=== PATIENT | female | born 1945 | race Caucasian/White ===

== ENCOUNTER 2018-06-01 16:15 | Observation (INO) ==
--- NOTE | 2018-06-01 16:56 | ED ---
HPI General Chief complaint: Neuro Symptoms/Deficit Stated complaint: Confusion/Blurred Vision Time Seen by Provider: 06/01/18 16:33 Source: patient Mode of arrival: ambulatory Limitations: no limitations History of Present Illness HPI narrative: 72yo F presents to the ED with c/o slurred speech and difficulty speaking the right words about an hour and a half hours ago. Said her symptoms have pretty much resolved. Also has been having nausea, diarrhea and diffuse abdominal discomfort for 2 days. Denies any fever, chest pain, sob, focal weakness or numbness. Denies any previous stroke. PSH include cholecystectomy and appendectomy. Related Data Home Medications Medication Instructions Recorded Confirmed atorvastatin 20 mg PO DAILY 06/01/18 06/01/18 calcium carbonate [Calcium 500] 500 mg PO DAILY 06/01/18 06/01/18 cholecalciferol (vitamin D3) 2,000 unit PO DAILY 06/01/18 06/01/18 [Vitamin D3] docosahexanoic acid-epa [Fish Oil] 1 cap PO BID 06/01/18 06/01/18 multivitamin 1 tab PO DAILY 06/01/18 06/01/18 oxybutynin chloride 2.5 mg PO BID 06/01/18 06/01/18 venlafaxine 75 mg PO DAILY 06/01/18 06/01/18 Allergies Allergy/AdvReac Type Severity Reaction Status Date / Time codeine Allergy Nausea/Vomi Verified 06/01/18 16:39 ting Review of Systems ROS Unobtainable All other systems reviewed negative except as stated in HPI [facility] Medical History Medical History Depression (Acute) High cholesterol (Acute) Social History Social History Substance History: No History of Abuse Second Hand Smoke Exposure: No Smoking Status: Former smoker How Often Do You Have a Drink Containing Alcohol: Never Recent Travel in [facility] within the Last 8 Weeks: No Recent Out of Country Travel within the Last 8 Weeks: No Immunization History Tetanus Immunization: >5 Years Hx Influenza Vaccine This Season: No Exam Narrative Exam Narrative: GENERAL: 72yo F in mild distress. SKIN: Focused skin assessment warm/dry. HEAD: Atraumatic. Normocephalic. EYES: Pupils equal and round. No scleral icterus. No injection or drainage. ENT: No nasal bleeding or discharge. Mucous membranes pink and moist. NECK: Trachea midline. No JVD. CARDIOVASCULAR: Regular rate and rhythm. No murmur appreciated. RESPIRATORY: No accessory muscle use. Clear to auscultation. Breath sounds equal bilaterally. GASTROINTESTINAL: Abdomen soft, diffuse tenderness. No rebound tenderness or guarding. MUSCULOSKELETAL: No obvious deformities. No clubbing. No cyanosis. No edema. NEUROLOGICAL: Awake and alert. No obvious cranial nerve deficits. Motor grossly within normal limits in all extremities. Sensation intact. Normal speech. NIH stroke scale 0. PSYCHIATRIC: Appropriate mood and affect; insight and judgment normal. Course Initial Documented Vital Signs Temperature 98.9 F 06/01/18 16:19 Pulse Rate 77 06/01/18 16:19 Respiratory Rate 18 06/01/18 16:19 Blood Pressure 145/101 H 06/01/18 16:19 Pulse Oximetry 98 06/01/18 16:19 Last Documented Vital Signs Temperature 98.9 F 06/01/18 16:19 Pulse Rate 82 06/01/18 18:31 Respiratory Rate 18 06/01/18 18:31 Blood Pressure 140/73 06/01/18 18:31 Pulse Oximetry 100 06/01/18 18:31 Medical Decision Making MDM Narrative Medical decision making narrative: 72yo F with sudden onset dysarthria and aphasia that started 1.5 hours ago but resolved by the time she arrived at the ED. NIH stroke scale 0 in the ED. Pt also with GI symptoms that started 2 days ago. Pt said if she doesnt move, she does not really have pain in her abdomen so does not want any pain medication now. Labs reviewed, no leukocytosis. H/H normal. Mild hypokalemia at 3.3, replaced orally. Pt given aspirin. CT brain showed no acute findings. Pt given aspirin. CT a/p showed mild colitis. Pt is well appearing with no fever or leukocytosis. Likely gastroenteritis. Discussed with Dr. Hurt and accepted for observation for TIA. Differential Diagnosis Differential Diagnosis: TIA vs. colitis vs. dehydration vs. electrolyte abnormality Lab Data Result diagrams: 06/01/18 16:30 06/01/18 16:30 Lab Results 06/01/18 06/01/18 06/01/18 Range/Units 16:30 16:30 16:30 CBC w Diff Auto diff final WBC 6.0 (4.0-11.0) th/mm3 RBC 4.32 (4.00-5.30) mil/mm3 Hgb 13.8 (11.6-15.3) gm/dL Hct 40.8 (35.0-46.0) % MCV 94.5 (80.0-100.0) fL MCH 31.8 (27.0-34.0) pg MCHC 33.7 (32.0-36.0) % RDW 13.6 (11.6-17.2) % Plt Count 212 (150-450) th/mm3 MPV 7.2 (7.0-11.0) fL Neut % (Auto) 54.6 (16.0-70.0) % Lymph % (Auto) 34.9 (9.0-44.0) % [place] % (Auto) 9.5 H (0.0-8.0) % Eos % (Auto) 0.4 (0.0-4.0) % Baso % (Auto) 0.6 (0.0-2.0) % Neut # (Auto) 3.3 (1.8-7.7) th/mm3 Lymph # (Auto) 2.1 (1.0-4.8) th/mm3 [place] # (Auto) 0.6 (0.0-0.9) th/mm3 Eos # (Auto) 0.0 (0.0-0.4) th/mm3 Baso # (Auto) 0.0 (0.0-0.2) th/mm3 WBC Differential . Differential Comment . PT 10.8 (9.8-11.6) sec INR 1.1 Ratio APTT 26.0 (24.3-30.1) sec Sodium 138 (136-145) meq/L Potassium 3.3 L (3.5-5.1) meq/L Chloride 105 (98-107) meq/L Carbon Dioxide 22.5 (21.0-32.0) meq/L Anion Gap 11 (5-15) meq/L BUN 11 (7-18) mg/dL Creatinine 1.20 H (0.50-1.00) mg/dL Estimated GFR 44 L (>89) mL/min Random Glucose 90 (74-106) mg/dL Calcium 10.1 (8.5-10.1) mg/dL Total Bilirubin 0.8 (0.2-1.0) mg/dL AST 28 (15-37) U/L ALT 29 (10-53) U/L Alkaline Phosphatase 96 (45-117) U/L Total Protein 8.3 H (6.4-8.2) g/dL Albumin 3.8 (3.4-5.0) g/dL Lipase 317 (73-393) U/L Imaging Data Radiologist's impression: Abdomen/Pelvis CT 06/01/18 16:45 CONCLUSION: 1. Diffuse mild mural thickening of the colon most characteristic of a mild colitis. 2. Fatty liver. Previous cholecystectomy. Head CT 06/01/18 16:45 CONCLUSION: 1. No acute findings. . ECG Data EKG Prior to Arrival: No Attestation: I personally reviewed and interpreted this ECG as follows: Interpretation: NSR 78bpm. LAD. No ST elevation or depression. Discharge Plan Discharge Disposition Patient Disposition: 30 Still Patient Discharge Details Diagnosis: Transient ischemic attack Physicians Team ED Provider: Tara Bennett Primary Care Provider: Jessica Hoang Attending Provider: Alina Hurt Other Providers: Annette Mcdowell ; Bita Hudson Status ED Status: Admitted Observation Patient
[2018-06-01 17:00] LABS: Baso % (Auto) 0.6 % (0.0-2.0); Eos % (Auto) 0.4 % (0.0-4.0); Hematocrit 40.8 % (35.0-46.0); Hemoglobin 13.8 gm/dL (11.6-15.3); Lymph # (Auto) 2.1 th/mm3 (1.0-4.8); Lymph % (Auto) 34.9 % (9.0-44.0); Mean Corpuscular HGB Conc 33.7 % (32.0-36.0); Mean Corpuscular Hemoglobin 31.8 pg (27.0-34.0); Mean Corpuscular Volume 94.5 fL (80.0-100.0); Mean Platelet Volume 7.2 fL (7.0-11.0); Mono # (Auto) 0.6 th/mm3 (0.0-0.9); Mono % (Auto) 9.5 % (0.0-8.0); Neut # (Auto) 3.3 th/mm3 (1.8-7.7); Neut % (Auto) 54.6 % (16.0-70.0); Platelet Count 212 th/mm3 (150-450); Red Blood Count 4.32 mil/mm3 (4.00-5.30); Red Cell Distribution Width 13.6 % (11.6-17.2)
[2018-06-01 17:10] LABS: Chloride 105 meq/L (98-107); Potassium 3.3 meq/L (3.5-5.1); Sodium 138 meq/L (136-145)
[2018-06-01 17:13] LABS: Calcium 10.1 mg/dL (8.5-10.1)
[2018-06-01 17:14] LABS: Albumin 3.8 g/dL (3.4-5.0); Anion Gap 11 meq/L (5-15); Blood Urea Nitrogen 11 mg/dL (7-18); Carbon Dioxide 22.5 meq/L (21.0-32.0); Glucose,Random 90 mg/dL (74-106); Lipase 317 U/L (73-393)
[2018-06-01 17:16] LABS: INR 1.1 Ratio; Prothrombin Time 10.8 sec (9.8-11.6)
[2018-06-01 17:17] LABS: Alanine Aminotransferase 29 U/L (10-53); Aspartate Aminotransferase 28 U/L (15-37); Glomerular Filtration Rate 44 mL/min (>89)
[2018-06-01 17:19] LABS: Total Protein 8.3 g/dL (6.4-8.2)
[2018-06-01 17:20] LABS: Alkaline Phosphatase 96 U/L (45-117)
--- NOTE | 2018-06-01 17:59 | CT ---
EXAM DATE: 06/01/2018 5:55 PM EDT AGE/SEX: 72 years / Female INDICATIONS: Speaking difficulty. CLINICAL DATA: This is the patient's initial encounter. Patient reports that signs and symptoms have been present for 1 day and indicates a pain score of 0/10. MEDICAL/SURGICAL HISTORY: Hypercholesterolemia. Appendectomy. Cholecystectomy. RADIATION DOSE: 55.03 CTDI (mGy) COMPARISON: No prior exams available for comparison. TECHNIQUE: CT of the head without contrast. Using automated exposure control and adjustment of the mA and/or kV according to patient size, radiation dose was kept as low as reasonably achievable to ob tain optimal diagnostic quality images. DICOM format image data is available electronically for revi ew and comparison. FINDINGS: Remote left cerebellar lacunar infarct. No signs of acute infarct, hemorrhage or mass. No fractures a re seen. CONCLUSION: 1. No acute findings. . Electronically signed by: Sulaiman Soliz MD 06/01/2018 5:57 PM EDT
--- NOTE | 2018-06-01 18:12 | CT ---
EXAM DATE: 06/01/2018 6:00 PM EDT AGE/SEX: 72 years / Female INDICATIONS: Non-specific abdominal pain and nausea. CLINICAL DATA: This is the patient's initial encounter. Patient reports that signs and symptoms have been present for 2 days and indicates a pain score of 5/10. MEDICAL/SURGICAL HISTORY: Hypercholesterolemia. Appendectomy. Cholecystectomy. ORAL CONTRAST: No oral contrast ingested. RADIATION DOSE: 14.06 CTDI (mGy) COMPARISON: No prior exams available for comparison. TECHNIQUE: Multiple contiguous axial images were obtained through the abdomen and pelvis following b olus infusion of 95 ml Omnipaque 350 (iohexol) nonionic water-soluble contrast as a single exam dos e. No oral contrast ingested. Using automated exposure control and adjustment of the mA and/or kV ac cording to patient size, radiation dose was kept as low as reasonably achievable to obtain optimal di agnostic quality images. DICOM format image data is available electronically for review and comparis on. FINDINGS: Lung bases are clear. Diffuse fatty liver. Spleen, adrenals, kidneys and pancreas demonstrate no acut e previous cholecystectomy without biliary ductal dictation. No free fluid. No bowel obstruction. No adenopathy. There is mild mural thickening of the colon most characteristic of a mild colitis. CONCLUSION: 1. Diffuse mild mural thickening of the colon most characteristic of a mild colitis. 2. Fatty liver. Previous cholecystectomy. Electronically signed by: Christopher Verduzco MD 06/01/2018 6:11 PM EDT
[2018-06-01] MEDS ORDERED: Aspirin 325 MG Tablet PO ONE (18:22)
[2018-06-01] MEDS ORDERED: Dextrose 50% in Water 50 ML Vial IV.PUSH PRN (18:29)
[2018-06-01] MEDS: Insulin NovoLOG Aspart Correctional Sugar Inj SQ SCH (23:24)
[2018-06-02] MEDS: Insulin NovoLOG Aspart Correctional Sugar Inj SQ SCH ×3 (08:37→16:44)
[2018-06-02] MEDS: Calcium Carbonate 500 MG Tablet PO SCH (08:39)
[2018-06-02] MEDS: Aspirin 325 MG Tablet PO SCH (08:39)
[2018-06-02] MEDS: Venlafaxine XR 75 MG Capsule PO SCH (08:40)
--- NOTE | 2018-06-02 10:21 | ECG ---
Date Performed: 06/01/2018 Time Performed: 16:29:05 PTAGE: 72 years EKG: Sinus rhythm BORDERLINE LEFT AXIS DEVIATION NONSPECIFIC ST & T-WAVE ABNORMALITY BORDERLINE ECG NO PREVIOUS TRACING DOCTOR: Amie Tran Interpretating Date/Time 06/02/2018 10:19:23
[2018-06-02 10:38] LABS: Chol/HDL Ratio 3.33 Ratio; HDL Cholesterol 51.6 mg/dL (40.0-60.0)
--- NOTE | 2018-06-02 10:41 | MB ---
cc: Annette Mcdowell MD DATE: 06/02/2018 IDENTIFYING DATA: A 72-year-old female. REASON FOR CONSULTATION: Possible stroke. HISTORY OF PRESENT ILLNESS: This is a pleasant 72-year-old woman who was in [place] at a therapist for her son who has autism when she was trying to describe a bottle of water with electrolytes and the words just did not come out properly lasting for a certain length of time, really unsure to the point where her symptoms resolved. She has had some type of viral syndrome prior to that 3 days prior with some nausea, diarrhea, and abdominal discomfort. No fever or chills. Since they live close to [facility], she decided to come to the ED to get evaluated. She no longer has any symptoms. Denies any trouble speaking, understanding, numbness, tingling, dizziness, headache, weakness, and unsteady gait. PAST MEDICAL HISTORY: Depression and hyperlipidemia. SOCIAL HISTORY: Nonsmoker. Does not drink. Has a 39-year-old son with autism. FAMILY HISTORY: Heart disease on mother and father's side. States her father in his 30s of a heart attack. MEDICATIONS: Refer to MAR, but she does not usually take aspirin due to some GI issues. PHYSICAL EXAMINATION: VITAL SIGNS: Temperature 97.1, pulse 82, respiratory rate 20, blood pressure 117/63, saturating at 99% on room air. NECK: Supple. No appreciable bruits. HEART: Regular. LUNGS: Clear. NEUROLOGIC: She is awake, alert and oriented. Pupils reactive. Visual [place] are full. Face symmetrical. Tongue midline. She does not have any aphasia or dysarthria. Motor [place] no drift or leg lag. Cerebellar testing is normal. DTRs are 1+. Toes are downgoing. Gait is steady. LABORATORY DATA: Reviewed. CBC is unremarkable. Coag panel normal. Chemistries: Potassium 3.3, creatinine 1.2, GFR 44, glucose 128. Hemoglobin A1c is pending. Lipid panel appears pending. Lipase is normal. IMAGING: CT head shows a remote left cerebellar lacune, nothing acute, however. IMPRESSION: Transient ischemic attack-like event in a 72-year-old woman with a history of hyperlipidemia. RECOMMENDATIONS: Recommend, at this point in time, obtaining a complete neurological evaluation with an MRI/MRA, carotid ultrasound, 2-D echo, placed her on some aspirin and a statin. PT has already seen her. She is at baseline. Depending on findings, further recommendations will be made accordingly. A lipid panel and hemoglobin A1c is also pending. Continue current care, further recommendations to be made as needed. Annette Mcdowell MD DF/DL , 10:23 AM , 10:32 AM
[2018-06-02 10:55] LABS: Potassium 3.9 meq/L (3.5-5.1)
[2018-06-02 10:57] LABS: Calcium 9.5 mg/dL (8.5-10.1)
[2018-06-02 10:58] LABS: Carbon Dioxide 24.3 meq/L (21.0-32.0); Magnesium 1.9 mg/dL (1.5-2.5)
[2018-06-02 11:12] LABS: Thyroid Stimulating Hormone 4.28 uIU/mL (0.358-3.740)
--- NOTE | 2018-06-02 12:38 | P.HPIM ---
History of Present Illness Primary Care Physician: Jessica Hoang MD Chief Complaint: Forgetfulness difficulty finding words History of Present Illness: Patient is a 72-year-old female with a history of colitis in her late 20s. She sulfa tapering doses and adjusting her diet without incident over the last 50 years. She reports now increased loose stools and abdominal cramping and noticed that she was getting the high and she felt as if speaking was difficult for her and she could not find certain words to say. She had been sleeping a lot. She had no fevers or chills and no bloody stools. She was nauseated. Came to the hospital for further evaluation and treatment. She has now been found to have colitis in the abdominal CT without evidence of sepsis. She is alert and oriented at this time and does have some minor difficulty with word finding. Imaging initially has further imaging is pending. Patient appears quite dehydrated with acute kidney injury and hypokalemia. Patient is recommended for further observation and treatment due to these issues - Diagnosis (1) Transient ischemic attack (2) Colitis Review of Systems All other systems reviewed negative except as stated in HPI PMFSH - History History Provided By: Patient - Medical History Medical History: Medical History (Last Updated 06/02/18 @ 12:36 by Alina Hurt MD) Colitis Depression High cholesterol - Surgical History Surgical History: Surgical History (Last Reviewed 06/02/18 @ 12:35 by Alina Hurt MD) Cataract extraction status, left eye Cataract extraction status, right eye H/O dilation and curettage History of tubal ligation Hx of appendectomy Hx of cholecystectomy - Family History Family History: Family History (Last Updated 06/02/18 @ 12:36 by Alina Hurt MD) Other Anxiety Autoimmune disease - Tobacco History Second Hand Smoke Exposure: No Tobacco Use In Past 30 Days: No Smoking Status: Never smoker - Alcohol History How Often Do You Have a Drink Containing Alcohol: Never - Substance Use History Substance History: No History of Abuse - Travel History Recent Travel in the [place] Within the Last 8 Weeks: No Recent Travel Out of the Country Within the Last 8 Weeks: No - Immunization History Tetanus Immunization: <5 Years Hx Influenza Vaccine This Season: No Medications and Allergies Active Medications: Active Medications Aspirin (Aspirin) 325 mg PO DAILY [facility] Last Admin: 06/02/18 08:39 Dose: 325 mg Atorvastatin Calcium (Lipitor) 20 mg PO HS [facility] Dextrose (D50w Vial) 50 ml IV.PUSH UNSCH PRN PRN Reason: PER HYPOGLYCEMIA PROTOCOL Enalaprilat (Vasotec Inj) 1.25 mg IV.PUSH Q4H PRN PRN Reason: For SBP > 220 or DBP > 120 Glucagon (Glucagon Inj) 1 mg OTHER UNSCH PRN PRN Reason: for Hypoglycemia Protocol Lactated Ringer's (Lr 1000 Ml Inj) 1,000 mls @ 100 mls/hr IV.CONT .Q10H [facility] Last Admin: 06/02/18 11:07 Dose: 100 mls/hr Insulin Aspart (Novolog Insulin Correctional Sugar Inj) 0 unit SQ ACHS [facility]; Protocol Last Admin: 06/02/18 11:56 Dose: Not Given Miscellaneous (Pill Splitter) 1 each OTHER UNSCH PRN PRN Reason: SEE LABEL COMMENTS Oxybutynin Chloride (Ditropan) 2.5 mg PO BID [facility] Last Admin: 06/02/18 08:39 Dose: 2.5 mg Sodium Chloride (Ns Flush) 2 ml IV.FLUSH BID [facility] Last Admin: 06/02/18 08:43 Dose: 2 ml Sodium Chloride (Ns Flush) 2 ml IV.FLUSH PRN PRN PRN Reason: FLUSH AFTER USING IV ACCESS Venlafaxine HCl (Effexor Xr) 75 mg PO DAILY [facility] Last Admin: 06/02/18 08:40 Dose: 75 mg Allergies Allergy/AdvReac Type Severity Reaction Status Date / Time codeine Allergy Nausea/Vomi Verified 06/01/18 16:39 ting Home Medications Medication Instructions Recorded Confirmed Type atorvastatin 20 mg PO DAILY 06/01/18 06/01/18 History calcium carbonate [Calcium 500] 500 mg PO DAILY 06/01/18 06/01/18 History cholecalciferol (vitamin D3) 2,000 unit PO DAILY 06/01/18 06/01/18 History [Vitamin D3] docosahexanoic acid-epa [Fish Oil] 1 cap PO BID 06/01/18 06/01/18 History multivitamin 1 tab PO DAILY 06/01/18 06/01/18 History oxybutynin chloride 2.5 mg PO BID 06/01/18 06/01/18 History venlafaxine 75 mg PO DAILY 06/01/18 06/01/18 History Exam Vital signs: Vital Signs 06/01/18 16:19 06/01/18 16:30 06/01/18 17:06 Temperature 98.9 F Pulse Rate 77 78 75 Respiratory Rate 18 18 18 Blood Pressure 145/101 H 139/66 142/76 H Pulse Oximetry 98 99 99 06/01/18 18:30 06/01/18 18:31 06/01/18 19:43 Temperature Pulse Rate 82 82 82 Respiratory Rate 18 18 Blood Pressure 140/73 140/70 Pulse Oximetry 100 98 06/01/18 21:00 06/02/18 00:00 06/02/18 00:45 Temperature 98.4 F 97.8 F 97.8 F Pulse Rate 77 88 88 Respiratory Rate 20 14 20 Blood Pressure 146/68 H 127/66 127/66 Pulse Oximetry 97 98 100 06/02/18 04:00 06/02/18 08:00 Temperature 97.9 F 97.1 F L Pulse Rate 97 H 82 Respiratory Rate 20 20 Blood Pressure 132/63 117/63 Pulse Oximetry 98 99 Intake & Output 06/01/18 06/02/18 06/02/18 18:59 06:59 18:59 Intake Total 0 / 0 0 / 0 Balance 0 / 0 0 / 0 Weight 86 kg 86 kg Intake: Oral 0 / 0 0 / 0 Other: # Voids 2 Date of Last Bowel Movement 06/01/18 Weight On Admission 86 kg Narrative: GENERAL: Well-nourished, well-developed patient. SKIN: Warm and dry. HEAD: Normocephalic. EYES: No scleral icterus. No injection or drainage. NECK: Supple, trachea midline. No JVD or lymphadenopathy. CARDIOVASCULAR: Regular rate and rhythm without murmurs, gallops, or rubs. RESPIRATORY: Breath sounds equal bilaterally. No accessory muscle use. GASTROINTESTINAL: Abdomen soft, non-tender, nondistended. MUSCULOSKELETAL: No cyanosis, or edema. BACK: Nontender without obvious deformity. No CVA tenderness. NEUROLOGICAL: Awake and alert. Cranial nerves II through XII intact. Motor and sensory grossly within normal limits. Five out of 5 muscle strength in all muscle groups. Normal speech. Results - Labs CBC & Chem 7: 06/01/18 16:30 06/02/18 04:37 Labs: Short CBC 06/01/18 Range/Units 16:30 WBC 6.0 (4.0-11.0) th/mm3 Hgb 13.8 (11.6-15.3) gm/dL Hct 40.8 (35.0-46.0) % Plt Count 212 (150-450) th/mm3 BMP 06/01/18 06/02/18 16:30 04:37 Sodium 138 140 Potassium 3.3 L 3.9 Chloride 105 106 Carbon Dioxide 22.5 24.3 BUN 11 11 Creatinine 1.20 H 1.20 H Calcium 10.1 9.5 Liver Function 06/01/18 Range/Units 16:30 Total Bilirubin 0.8 (0.2-1.0) mg/dL AST 28 (15-37) U/L ALT 29 (10-53) U/L Alkaline Phosphatase 96 (45-117) U/L Albumin 3.8 (3.4-5.0) g/dL - Imaging Impressions Abdomen/Pelvis CT 06/01/18 16:45 CONCLUSION: 1. Diffuse mild mural thickening of the colon most characteristic of a mild colitis. 2. Fatty liver. Previous cholecystectomy. Head CT 06/01/18 16:45 CONCLUSION: 1. No acute findings. . Caprini VTE Risk Assessment Caprini VTE Risk Assessment: Moderate/High Risk (score >= 2) Caprini Risk Assessment Model: Point Value = 1 Point Value = 2 Point Value = 3 Point Value = 5 Age 41-60 Minor surgery BMI > 25 kg/m2 Swollen legs Varicose veins or History of unexplained or recurrent spontaneous Oral contraceptives or hormone replacement Sepsis (< 1 month) Serious lung disease, including pneumonia (< 1 month) Abnormal pulmonary function Acute myocardial infarction Congestive heart failure (< 1 month) History of inflammatory bowel disease Medical patient at bed rest Age 61-74 Arthroscopic surgery Major open surgery (> 45 min) Laparoscopic surgery (> 45 min) Malignancy Confined to bed (> 72 hours) Immobilizing plaster cast Central venous access Age >= 75 History of VTE Family history of VTE Factor V Leiden Prothrombin 23020B Lupus anticoagulant Anticardiolipin antibodies Elevated serum homocysteine Heparin-induced thrombocytopenia Other congenital or acquired thrombophilia Stroke (< 1 month) Elective arthroplasty Hip, pelvis, or leg fracture Acute spinal cord injury (< 1 month) Prophylaxis Regimen: Total Risk Factor Score Risk Level Prophylaxis Regimen 0-1 Low Early ambulation 2 Moderate Order ONE of the following: *Sequential Compression Device (SCD) *Heparin 5000 units SQ BID 3-4 Higher Order ONE of the following medications: *Heparin 5000 units SQ TID *Enoxaparin/Lovenox 40 mg SQ daily (WT < 150 kg, CrCl > 30 mL/min) *Enoxaparin/Lovenox 30 mg SQ daily (WT < 150 kg, CrCl > 10-29 mL/min) *Enoxaparin/Lovenox 30 mg SQ BID (WT < 150 kg, CrCl > 30 mL/min) AND/OR *Sequential Compression Device (SCD) 5 or more Highest Order ONE of the following medications: *Heparin 5000 units SQ TID (Preferred with Epidurals) *Enoxaparin/Lovenox 40 mg SQ daily (WT < 150 kg, CrCl > 30 mL/min) *Enoxaparin/Lovenox 30 mg SQ daily (WT < 150 kg, CrCl > 10-29 mL/min) *Enoxaparin/Lovenox 30 mg SQ BID (WT < 150 kg, CrCl > 30 mL/min) AND *Sequential Compression Device (SCD) Assessment and Plan - Assessment (1) Transient ischemic attack Code(s): G45.9 - Transient cerebral ischemic attack, unspecified Status: Acute Plan: Follow-up imaging Appears to be resolved secondary to recent diarrhea (2) Colitis Code(s): K52.9 - Noninfective gastroenteritis and colitis, unspecified Status : Acute Plan: Patient with a history of colitis in her 20s, this may be a recurrence At this point we will continue with hydration and follow-up as an outpatient. No evidence of sepsis at this time. H&P: Quality - VTE Deep Vein Thrombosis/Pulmonary Embolism Present on Admission: No (1) Transient ischemic attack Qualifiers: Transient cerebral ischemia type: unspecified Qualified Code(s): G45.9 - Transient cerebral ischemic attack, unspecified
[2018-06-02 17:05] LABS: Hemoglobin A1c 5.5 % (4.3-6.0)
[2018-06-02] MEDS ORDERED: Gadodiamide PF Inj 287 MG/ML 20 ML Syringe (for RAD MRI) IVCONTRAST ONE (18:30)
--- NOTE | 2018-06-02 18:40 | MR ---
EXAM DATE: 06/02/2018 6:25 PM EDT AGE/SEX: 72 years / Female INDICATIONS: Aphasia. CLINICAL DATA: This is the patient's subsequent encounter. Patient reports that signs and symptoms h ave been present for 2 days and indicates a pain score of 0/10. MEDICAL/SURGICAL HISTORY: Hypercholesterolemia. Transient ischemic attack. Cholecystectomy. A ppendectomy. Tubal ligation. COMPARISON: No prior exams available for comparison. TECHNIQUE: 3D [id number] MRA was performed. Source images, multiplanar STS MIP, and 3D volum e MIP reconstructions were reviewed. FINDINGS: There is excellent visualization of the major intracranial arteries out to the second-order branch ve ssels. There is no evidence for aneurysm, vessel truncation or stenosis, and no evidence for vascula r malformation. CONCLUSION: 1. Examination within normal limits for age. Electronically signed by: Christopher Verduzco MD 06/02/2018 6:38 PM EDT
--- NOTE | 2018-06-02 18:43 | MR ---
EXAM DATE: 06/02/2018 6:24 PM EDT AGE/SEX: 72 years / Female INDICATIONS: . Aphasia. CLINICAL DATA: This is the patient's subsequent encounter. Patient reports that signs and symptoms h ave been present for 2 days and indicates a pain score of 0/10. MEDICAL/SURGICAL HISTORY: Hypercholesterolemia. Transient ischemic attack. Cholecystectomy. A ppendectomy. Tubal ligation. COMPARISON: No prior exams available for comparison. TECHNIQUE: 20 ml Omniscan (gadodiamide) contrast infused MRA (single exam dose) of the extracranial circulation was performed using a neurovascular coil. Postprocessing was performed, including rotat ing sub-volume maximum intensity projections of each carotid artery, rotating full-volume maximum int ensity projections of both carotid arteries, sagittal and coronal sliding thin-slab reformations of e ach carotid artery, and left oblique sliding thin-slab reformation through the aortic arch to include the origin of the arch branch vessels. FINDINGS: Aortic Arch : There is a three-vessel origin of the great vessels from the aorta. No evidence of o stial narrowing. Right Carotid : The common carotid artery is intact. The carotid bulb has a normal configuration wi thout ulceration or narrowing. The internal carotid artery lumen is smooth without stenosis. The ex ternal carotid artery is intact. Left Carotid : The common carotid artery is intact. The carotid bulb has a normal configuration wit hout ulceration or narrowing. The internal carotid artery lumen is smooth without stenosis. The ext ernal carotid artery is intact. Vertebrals : The vertebral arteries have a symmetric diameter. No stenotic lesions are seen. CONCLUSION: 1. Examination is within normal limits for age. Percent stenosis is calculated using the diameter of the stenotic region over the diameter of the nor mal distal internal carotid artery Electronically signed by: Christopher Verduzco MD 06/02/2018 6:42 PM EDT
--- NOTE | 2018-06-02 18:45 | MR ---
EXAM DATE: 06/02/2018 6:25 PM EDT AGE/SEX: 72 years / Female INDICATIONS: Aphasia. CLINICAL DATA: This is the patient's subsequent encounter. Patient reports that signs and symptoms h ave been present for 2 days and indicates a pain score of 0/10. MEDICAL/SURGICAL HISTORY: Hypercholesterolemia. Transient ischemic attack. Cholecystectomy. A ppendectomy. Tubal ligation. COMPARISON: No prior exams available for comparison. TECHNIQUE: Multiplanar, multisequence examination of the brain was performed without and with 20 ml O mniscan (gadodiamide) contrast as a single exam dose. FINDINGS: There is no intracranial mass or midline shift. No hydrocephalus. No recent infarct on the diffusion- weighted images. Mild white matter ischemic changes. No sellar mass. No abnormal extra-axial fluid. CONCLUSION: 1. No acute findings. No recent infarct. Mild white matter ischemic changes. Electronically signed by: Christopher Verduzco MD 06/02/2018 6:43 PM EDT
[2018-06-03] MEDS: Venlafaxine XR 75 MG Capsule PO SCH (08:17)
[2018-06-03] MEDS: Calcium Carbonate 500 MG Tablet PO SCH (08:17)
[2018-06-03] MEDS: Aspirin 325 MG Tablet PO SCH (08:17)
--- NOTE | 2018-06-03 13:21 | P.PNIM ---
Subjective Interval history: Patient seen in follow up for acute neurological dysfunction which appears resolved and may be due to dehydration after episodes of colitis imaging normal Physical Exam Vital signs: Vital Signs 06/02/18 16:00 06/02/18 20:00 06/03/18 00:00 Temperature 96.9 F L 97.2 F L 98 F Pulse Rate 77 72 78 Respiratory Rate 20 20 18 Blood Pressure 135/64 121/57 L 107/61 Pulse Oximetry 96 100 93 L 06/03/18 04:00 06/03/18 08:00 06/03/18 08:38 Temperature 98 F 97.6 F Pulse Rate 84 85 82 Respiratory Rate 20 18 Blood Pressure 126/58 L 115/76 Pulse Oximetry 98 94 L Intake & Output 06/02/18 06/03/18 06/03/18 18:59 06:59 18:59 Intake Total 600 / 600 1000 / 1000 950 / 950 Output Total 1000 / 1000 Balance -400 / -400 1000 / 1000 950 / 950 Intake: IV 1000 / 1000 950 / 950 LR 1000 mL Inj 1,000 ML @ 100 1000 / 1000 950 / 950 mls/hr IV.CONT .Q10H ENOCH Rx#: [id number] Oral 600 / 600 Output: Urine 1000 / 1000 Other: Date of Last Bowel Movement 06/01/18 Narrative: GENERAL: SKIN: Warm and dry. HEAD: Atraumatic. Normocephalic. EYES: Pupils equal and round. No scleral icterus. No injection or drainage. ENT: No nasal bleeding or discharge. Mucous membranes pink and moist. NECK: Trachea midline. No JVD. CARDIOVASCULAR: Regular rate and rhythm. RESPIRATORY: No accessory muscle use. Clear to auscultation. Breath sounds equal bilaterally. GASTROINTESTINAL: Abdomen soft, non-tender, nondistended. Hepatic and splenic margins not palpable. MUSCULOSKELETAL: Extremities without clubbing, cyanosis, or edema. No obvious deformities. NEUROLOGICAL: Awake and alert. No obvious cranial nerve deficits. Motor grossly within normal limits. Five out of 5 muscle strength in the arms and legs. Normal speech. PSYCHIATRIC: Appropriate mood and affect; insight and judgment normal. Results - Labs CBC & Chem 7: 06/01/18 16:30 06/02/18 04:37 Laboratory Results - last 24 hr 06/02/18 06/02/18 06/02/18 04:37 04:37 16:44 POC Glucose 108 Hemoglobin A1c 5.5 Vitamin B12 715 - Imaging Impressions Head MRI 06/02/18 00:00 CONCLUSION: 1. No acute findings. No recent infarct. Mild white matter ischemic changes. Head MRA 06/02/18 00:00 CONCLUSION: 1. Examination within normal limits for age. Neck MRA 06/02/18 00:00 CONCLUSION: 1. Examination is within normal limits for age. Percent stenosis is calculated using the diameter of the stenotic region over the diameter of the normal distal internal carotid artery Assessment and Plan - Assessment (1) Transient ischemic attack Code(s): G45.9 - Transient cerebral ischemic attack, unspecified Status: Acute Plan: negative imaging Appears to be resolved secondary to recent diarrhea (2) Colitis Code(s): K52.9 - Noninfective gastroenteritis and colitis, unspecified Status : Acute Plan: Patient with a history of colitis in her 20s, this may be a recurrence At this point we will continue with hydration and follow-up as an outpatient. No evidence of sepsis at this time. - Plan Discharge Planning: Discharge home Activity and ventricular diet regular Follow-up GI doctor he (1) Transient ischemic attack Qualifiers: Transient cerebral ischemia type: unspecified Qualified Code(s): G45.9 - Transient cerebral ischemic attack, unspecified
[2018-06-03 14:01] VITALS: BP 113/59; PULSE 79; RESP 16; TEMP 98; O2SAT 98
--- NOTE | 2018-06-03 14:08 | ECHRPT ---
Indication: CVA/TIA CONCLUSIONS Normal left ventricular size and wall thickness. The left ventricular systolic function is normal wi th an estimated ejection fraction in the range of 60-65%. Left ventricular diastolic function parameters a re normal. Trace mitral valve regurgitation. There is trace tricuspid valve regurgitation. The estimated pulmonary arterial pressure is 27.6 mmHg. BP: / HR: Rhythm: Sinus MEASUREMENTS (Male / Female) Normal Values Technical Quality:Fair 2D ECHO LV Diastolic Diameter PLAX 4.5 cm 4.2 - 5.9 / 3.9 - 5.3 cm LV Systolic Diameter PLAX 3.3 cm IVS Diastolic Thickness 0.8 cm 0.6 - 1.0 / 0.6 - 0.9 cm LVPW Diastolic Thickness 0.8 cm 0.6 - 1.0 / 0.6 - 0.9 cm LV Relative Wall Thickness 0.4 LVOT Diameter 2.0 cm M-MODE Aortic Root Diameter MM 2.7 cm LA Systolic Diameter MM 3.1 cm LA Ao Ratio MM 1.1 AV Cusp Separation MM 2.2 cm DOPPLER AV Peak Velocity 140.0 cm/s AV Peak Gradient 7.8 mmHg LVOT Peak Velocity 94.8 cm/s LVOT Peak Gradient 3.6 mmHg AV Area Cont Eq pk 2.1 cm MR Peak Velocity 277.0 cm/s MR Peak Gradient 30.7 mmHg Mitral E Point Velocity 79.0 cm/s Mitral A Point Velocity 103.0 cm/s Mitral E to A Ratio 0.8 LV E' Lateral Velocity 8.2 cm/s Mitral E to LV E' Lateral Ratio 9.6 LV E' Septal Velocity 5.6 cm/s Mitral E to LV E' Septal Ratio 14.2 TR Peak Velocity 210.0 cm/s TR Peak Gradient 17.6 mmHg Right Atrial Pressure 10.0 mmHg Pulmonary Artery Systolic Pressu 27.6 mmHg Right Ventricular Systolic Press 27.6 mmHg FINDINGS LEFT VENTRICLE Normal left ventricular size and wall thickness. The left ventricular systolic function is normal wi th an estimated ejection fraction in the range of 60-65%. Left ventricular diastolic function parameters a re normal. RIGHT VENTRICLE Normal right ventricular size and systolic function. LEFT ATRIUM The left atrial size is normal. RIGHT ATRIUM The right atrial size is normal. ATRIAL SEPTUM Normal atrial septal thickness without atrial level shunting by limited color doppler interrogation. AORTA The aortic root and proximal ascending aorta are normal in size on limited imaging. MITRAL VALVE Trace mitral valve regurgitation. AORTIC VALVE Trileaflet aortic valve. No aortic valve stenosis or regurgitation. TRICUSPID VALVE There is trace tricuspid valve regurgitation. The estimated pulmonary arterial pressure is 27.6 mmHg. PULMONARY VALVE No pulmonary valve regurgitation or stenosis. VESSELS The inferior vena cava is normal in size. PERICARDIUM No pericardial effusion. Caleb Carson MD, FACC, [facility] [place] (Electronically Signed) Final Date:03 June 2018 14:08
== END 2018-06-03 15:26 | disposition home or self-care (01) ==
LOC: PHEDA 16:15 → PHED 16:15 → PH3 16:15
PROVIDERS: ADMIT Hospitalist; ATTEND Hospitalist
DX: E78.5 Hyperlipidemia, unspecified; Z82.49 Family history of ischemic heart disease and other diseases of the circulatory system; E78.00 Pure hypercholesterolemia, unspecified; E87.6 Hypokalemia; Z90.49 Acquired absence of other specified parts of digestive tract; Z88.5 Allergy status to narcotic agent; G45.9 Transient cerebral ischemic attack, unspecified; F32.9 Major depressive disorder, single episode, unspecified; K52.9 Noninfective gastroenteritis and colitis, unspecified; N17.9 Acute kidney failure, unspecified; Z79.899 Other long term (current) drug therapy; E86.0 Dehydration; Z87.891 Personal history of nicotine dependence